=== PATIENT | male | born 1950 | race Caucasian/White ===

== ENCOUNTER 2017-03-10 20:47 | Emergency (ER) | payer MEDICARE, OTHER ==
[~2017-03-10] VITALS: Ht 190.5 cm; Wt 161.8 kg
[~2017-03-10 20:47] MED LIST: ASPI81TA2 PO; BENA40TA3 PO; CEPH500C2 PO; DILT240C95 PO; FLAX10006 PO; GARL400T13 PO; HYDR-2540 PO; LEVO137T2 PO; METO25TA6 PO; MULT1TAB69 PO; NITR0.4T SL; OMEG500C7 PEG; POTA-12 PO
--- OUTSIDE RECORDS SUMMARY | 2017-03-10 20:52 | XMS REPORT | Summary of Care ---
Author Author Paulie Barry M.D. Organization Unknown Address [address] [place] [address] [place] [address] Phone Unavailable Care Team Providers Care Human Performance Consultant Name Role Phone Paulie Barry M.D. Unavailable Unavailable [employer] Rosales II Unavailable Unavailable Unavailable Unavailable Functional Status Name Dates Details Functional status health issues are not documented Status: Name Dates Details Cognitive status health issues are not documented Status: Problems Name Dates Details Hypothyroid (244.9, E03.9) Status: Active Hyperlipidemia (272.4, E78.5) Status: Active Morbid obesity (278.01, E66.01) Status: Active Hypertension (401.9, I10) Status: Active OA (osteoarthritis) (715.90, M19.90) Status: Active Sleep apnea (780.57, G47.30) Status: Active Hyperglycemia (790.29, R73.9) Status: Active Raised prostate specific antigen (790.93, R97.20) Status: Active Prostate nodule (600.10, N40.2) Status: Active Prophylactic antibiotic (V58.62, Z79.2) Status: Active Medications Name Dates Details Allopurinol 300 MG Oral Tablet TAKE 1 TABLET DAILY. Quantity: 30 Cho M.D.Paulie * Start 13-Oct-2016 Active Aspir-81 81 MG Oral Tablet Delayed Release TAKE 1 TABLET DAILY DIRECTED. * Refills: 0 Cho M.D., Paulie * Start 13-Oct-2016 Active Benazepril HCl - 40 MG Oral Tablet TAKE 1 TABLET DAILY DIRECTED. * Refills: 0 Cho M.D., Paulie * Start 13-Oct-2016 Active DiltiaZEM CD 240 MG Oral Capsule Extended Release 24 Hour Take one capsule by mouth daily * Refills: 0 Cho M.D., Paulie * Start 13-Oct-2016 Active Fish Oil 500 MG Oral Capsule 1 daily * Refills: 0 Cho M.D., Paulie * Start 13-Oct-2016 Active Flaxseed Oil 1000 MG Oral Capsule TAKE DIRECTED. * Refills: 0 Cho M.D., Paulie * Start 13-Oct-2016 Active Garlic 400 MG Oral Tablet TAKE DIRECTED. * Refills: 0 Cho M.D., Paulie * Start 13-Oct-2016 Active HydroCHLOROthiazide 25 MG Oral Tablet TAKE 1 TABLET DAILY. * Quantity: 30 Refills: 2 Cho M.D., Paulie * Start 13-Oct-2016 Active Levothyroxine Sodium 100 MCG Oral Tablet Take one tablet by mouth daily * Quantity: 30 Refills: 0 Cho M.D., Paulie * Start 13-Oct-2016 Active Metoprolol Tartrate 25 MG Oral Tablet TAKE ONE TABLET BY MOUTH ONCE DAILY * Quantity: 90 Refills: 0 Cho M.D., Paulie * Start 13-Oct-2016 Active Multivitamin Men Oral Tablet TAKE 1 TABLET DAILY. * Refills: 0 Cho M.D., Paulie * Start 13-Oct-2016 Active Nitroglycerin 0.4 MG Sublingual Tablet Sublingual PLACE 1 TABLET UNDER THE TONGUE EVERY 5 MINUTES FOR UP TO 3 DOSES NEEDED FOR CHEST PAIN.CALL 911 IF PAIN PERSISTS. * Refills: 0 Cho M.D., Paulie * Start 13-Oct-2016 Active Potassium Gluconate 550 MG Oral Tablet TAKE 1 TABLET DAILY DIRECTED. * Refills: 0 Cho M.D., Paulie * Start 13-Oct-2016 Active Ciprofloxacin HCl - 500 MG Oral Tablet Take 1 tablet BID X 5 days. Start medication two days prior to procedure * Quantity: 10 Refills: 0 Cho M.D., Paulie * Start 16-Oct-2016 Active DiazePAM 10 MG Oral Tablet Take 1 tablet prior to procedure. Bring to appt with Dr. Barry * Quantity: 1 Refills: 0 Cho M.D., Paulie Sam Start 16-Oct-2016 Active Morphine Sulfate 10 MG/ML Injection Solution Inject 6mg IM X 1 dose. given in Right deltoid Lot: [id number] Exp:03/25/17 * Quantity: 1 Refills: 0 Cho M.D., Paulie * Start 23-Oct-2016 Admin Requested Allergies and Adverse Reactions Name Dates Details amoxicillin (Allergy) Status: Active Procedures Procedure Dates Details History of Colonoscopy History of Umbilical Hernia Repair Procedures not documented Immunization Name Dates Details Immunizations not documented Family History Name Dates Details Family history unknown (V49.89, Z78.9) Status: Active Name Dates Details Family history unknown (V49.89, Z78.9) Status: Active Social History Name Dates Details - Status: Name Dates Details Former smoker Vital Signs Date Test Result Details 23-Oct-2016 09:23 BP Systolic 163 mm[Hg] Status: Comments: Location: ; Position: BP Diastolic 91 mm[Hg] Status: Comments: Location: ; Position: Heart Rate 69 /min Status: Comments: Location: ; Weight 365 lb Status: Body Mass Index Calculated 45.62 kg/m2 Status: Body Surface Area Calculated 2.83 m2 Status: 16-Oct-2016 11:10 BP Systolic 164 mm[Hg] Status: Comments: Location: ; Position: BP Diastolic 96 mm[Hg] Status: Comments: Location: ; Position: Heart Rate 61 /min Status: Comments: Location: ; Height 75 in Status: Weight 365 lb Status: Body Mass Index Calculated 45.62 kg/m2 Status: Body Surface Area Calculated 2.83 m2 Status: Results Date Description Value Details Results not documented Plan of Care Name Dates Details Planned Observations Planned Goals not documented Planned Encounters Appointment; Provider: Paulie Barry M.D. On 30-Oct-2016 12:30 Instructions Name Dates Details Instructions not documented Encounters Appointment; Paulie Barry M.D. Encounter Diagnosis: Problem not documented On 16-Oct-2016 11:15
--- OUTSIDE RECORDS SUMMARY | 2017-03-10 20:52 | XMS REPORT | Summary of Care ---
Author Author [facility] Organization [facility] Address [address] [place] [address] Phone Care Team Providers Care Client Services Vice President Name Role Phone Paulie Barry M.D. Unavailable Unavailable [employer] Rosales II Unavailable Unavailable Unavailable Unavailable Functional Status Name Dates Details Functional status health issues are not documented Status: Name Dates Details Cognitive status health issues are not documented Status: Problems Name Dates Details Hypothyroid (244.9, E03.9) Status: Active Hyperlipidemia (272.4, E78.5) Status: Active Hypertension (401.9, I10) Status: Active OA (osteoarthritis) (715.90, M19.90) Status: Active Sleep apnea (780.57, G47.30) Status: Active Hyperglycemia (790.29, R73.9) Status: Active Raised prostate specific antigen (790.93, R97.20) Status: Active Prostate nodule (600.10, N40.2) Status: Active Prophylactic antibiotic (V58.62, Z79.2) Status: Active Morbid obesity (278.01, E66.01) Status: Active Prostate cancer (185, C61) Status: Active Medications Name Dates Details Allopurinol 300 MG Oral Tablet TAKE 1 TABLET DAILY. Quantity: 30 Cho M.D.Paulie Start 13-Oct-2016 Active Aspir-81 81 MG Oral Tablet Delayed Release TAKE 1 TABLET DAILY DIRECTED. * Refills: 0 Cho M.D., Paulie * Start 13-Oct-2016 Active Benazepril HCl - 40 MG Oral Tablet TAKE 1 TABLET DAILY DIRECTED. * Refills: 0 Cho M.D., Paulie Sam Start 13-Oct-2016 Active DiltiaZEM CD 240 MG Oral Capsule Extended Release 24 Hour Take one capsule by mouth daily * Refills: 0 Cho M.D., Paulie * Start 13-Oct-2016 Active Fish Oil 500 MG Oral Capsule 1 daily * Refills: 0 Cho M.D., Paulie Sam Start 13-Oct-2016 Active Flaxseed Oil 1000 MG [...] Cho M.D., Paulie * Start 13-Oct-2016 Active DiazePAM 10 MG Oral Tablet Take 1 tablet prior to procedure. Bring to appt with Dr. Barry * Quantity: 1 Refills: 0 Cho M.D., Paulie Sam Start 16-Oct-2016 Active Morphine Sulfate 10 MG/ML Injection Solution Inject 6mg IM X 1 dose. given in Right deltoid Lot: [id number] Exp:03/25/17 * Quantity: 1 Refills: 0 Cho M.D., Paulie * Start 23-Oct-2016 Admin Requested Potassium Gluconate 550 MG Oral Tablet TAKE 1 TABLET DAILY DIRECTED. * Refills: 0 Cho M.D., Paulie Sam Start 13-Oct-2016 Active Nitroglycerin 0.4 MG Sublingual Tablet Sublingual PLACE 1 TABLET UNDER THE TONGUE EVERY 5 MINUTES FOR UP TO 3 DOSES NEEDED FOR CHEST PAIN.CALL 911 IF PAIN PERSISTS. * Refills: 0 Cho M.D., Paulie Sam Start 13-Oct-2016 Active Multivitamin Men Oral Tablet TAKE 1 TABLET DAILY. * Refills: 0 Cho M.D., Paulie Sam Start 13-Oct-2016 Active Allergies and Adverse Reactions Name Dates Details [...] smoker Vital Signs Date Test Result Details 27-Nov-2016 12:28 BP Systolic 169 mm[Hg] Status: Comments: Location: ; Position: BP Diastolic 98 mm[Hg] Status: Comments: Location: ; Position: Heart Rate 56 /min Status: Comments: Location: ; Physical Findings 16 Status: Comments: Respiration Results Date Description Value Details Results not documented Plan of Care Name Dates Details Planned Observations Planned Goals not documented Instructions Name Dates Details Instructions not documented Encounters Appointment; Paulie Barry M.D. Encounter Diagnosis: Problem not documented On 09-Dec-2016 16:00 Appointment; Paulie Barry M.D. Encounter Diagnosis: Problem not documented On 27-Nov-2016 12:30 Appointment; Paulie Barry M.D. Encounter Diagnosis: Problem not documented On 30-Oct-2016 12:30 Appointment; Paulie Barry M.D. Encounter Diagnosis: Problem not documented On 23-Oct-2016 09:45 Appointment; Paulie Barry M.D. Encounter Diagnosis: Problem not documented On 16-Oct-2016 11:15
--- OUTSIDE RECORDS SUMMARY | 2017-03-10 20:53 | XMS REPORT | Summary of Care ---
Author Author [facility] Organization [facility] Address [address] [place] [address] Phone Care Team Providers Care Veneer Taping Machine Operator Name Role Phone Layo Florez, User Unavailable Unavailable Paulie Barry M.D. Unavailable Unavailable [employer] Rosales [...] TAKE 1 TABLET DAILY. Quantity: 30 Cho M.D., Paulie * Start 13-Oct-2016 Active Aspir-81 81 MG [...] Cho M.D., Paulie * Start 16-Oct-2016 Active Morphine Sulfate 10 MG/ML Injection Solution Inject 6mg IM X 1 dose. given in Right deltoid Lot: [id number] Exp:03/25/17 * Quantity: 1 Refills: 0 Cho [...]
--- OUTSIDE RECORDS SUMMARY | 2017-03-10 20:53 | XMS REPORT | Summary of Care ---
Author Author Paulie Barry M.D. Organization Unknown Address [address] [place] [address] [place] [address] Phone Unavailable Care Team Providers Care Supply Room Clerk Name Role Phone Paulie Barry M.D. Unavailable [...] Cho M.D., Paulie Sam Start 13-Oct-2016 Active HydroCHLOROthiazide 25 MG Oral Tablet TAKE 1 TABLET DAILY. * Quantity: 30 Refills: 2 Cho M.D., Paulie Sam Start 13-Oct-2016 Active Levothyroxine Sodium 100 MCG [...] 1 TABLET DAILY. * Refills: 0 Cho M.D.Paulie Start 13-Oct-2016 Active Nitroglycerin 0.4 MG Sublingual Tablet Sublingual PLACE 1 TABLET UNDER THE TONGUE EVERY 5 MINUTES FOR UP TO 3 DOSES NEEDED FOR CHEST PAIN.CALL 911 IF PAIN PERSISTS. * Refills: 0 Cho M.D., Paulie Sam Start 13-Oct-2016 Active Potassium Gluconate 550 MG Oral Tablet TAKE 1 TABLET DAILY DIRECTED. * Refills: 0 Cho M.D., Paulie Sam Start 13-Oct-2016 Active DiazePAM 10 MG Oral Tablet Take 1 tablet prior to procedure. Bring to appt with Dr. Barry * Quantity: 1 Refills: 0 Cho M.D.Paulie Start 16-Oct-2016 Active Morphine Sulfate 10 MG/ML Injection Solution Inject 6mg IM X 1 dose. given in Right deltoid Lot: [id number] Exp:03/25/17 * Quantity: 1 Refills: 0 Cho M.D.Paulie Start 23-Oct-2016 Admin Requested Allergies and Adverse [...] Encounters Appointment; Provider: Paulie Barry M.D. On 09-Dec-2016 16:00 Instructions Name Dates Details Instructions not documented Encounters Appointment; Paulie Barry M.D. Encounter Diagnosis: Problem not documented On 30-Oct-2016 12:30 Appointment; Paulie Barry M.D. Encounter Diagnosis: Problem not documented On 23-Oct-2016 09:45 Appointment; Paulie Barry M.D. Encounter Diagnosis: Problem not documented On 16-Oct-2016 11:15
--- OUTSIDE RECORDS SUMMARY | 2017-03-10 20:53 | XMS REPORT | Summary of Care ---
Author Author Paulie Barry M.D. Organization Unknown Address [address] [place] [address] [place] [address] Phone Unavailable Care Team Providers Care Panel Machine Setter Name Role Phone Paulie Barry M.D. Unavailable [...] Quantity: 1 Refills: 0 Cho M.D., Paulie Flaco Start 16-Oct-2016 Active Allergies and Adverse Reactions Name Dates [...]
--- OUTSIDE RECORDS SUMMARY | 2017-03-10 20:53 | XMS REPORT | Continuity of Care Document ---
Author Author [facility] Organization [facility] Address Unknown Phone Unavailable Allergies Medications Problems Date Dx Coded Attending Type Code Diagnosis Diagnosed By 03/30/2016 Dorothy Calvillo Reason I20.0 Unstable angina 03/30/2016 Dorothy Calvillo Final R79.89 Other specified abnormal findings of blood chemistry Procedures Results Encounters ACCT No. Visit Date/Time Discharge Status Pt. Type Provider Facility Loc./Unit Complaint [id number] 03/27/2016 08:07:00 2015 23:59:00 DIS Outpatient Dorothy Calvillo [facility] [place] [facility] Nuc Car I20.0 chest pain
--- OUTSIDE RECORDS SUMMARY | 2017-03-10 20:53 | XMS REPORT | Summary of Care ---
Author Author Paulie Barry M.D. Organization Unknown Address [address] [place] [address] [place] [address] Phone Unavailable Care Team Providers Care Stock Clipper Name Role Phone Paulie Barry M.D. Unavailable [...] 1 dose. given in Right deltoid Lot: [id number] Exp:03/25/17 * Quantity: 1 Refills: 0 Cho [...]
--- OUTSIDE RECORDS SUMMARY | 2017-03-10 20:53 | XMS REPORT | Summary of Care ---
Author Author Paulie Barry M.D. Organization Unknown Address [address] [place] [address] [place] [address] Phone Unavailable Care Team Providers Care Telephone Collector Name Role Phone Paulie Barry M.D. Unavailable [...]
--- OUTSIDE RECORDS SUMMARY | 2017-03-10 20:53 | XMS REPORT | Summary of Care ---
Author Author Paulie Barry M.D. Organization Unknown Address [address] [place] [address] [place] [address] Phone Unavailable Care Team Providers Care Director Media Name Role Phone Paulie Barry M.D. Unavailable Unavailable [employer] Ros[employer] II Unavailable Unavailable Unavailable Unavailable Functional Status [...] Status: Active Hyperglycemia (790.29, R73.9) Status: Active Prophylactic antibiotic (V58.62, Z79.2) Status: Active Raised prostate specific antigen (790.93, R97.20) Status: Active Prostate nodule (600.10, N40.2) Status: Active Medications Name Dates Details Allopurinol [...] smoker Vital Signs Date Test Result Details 16-Oct-2016 11:10 BP Systolic 164 mm[Hg] Status: [...] Encounters Appointment; Provider: Paulie Barry M.D. On 23-Oct-2016 09:45 Interventions Provided Medication Changes* Ciprofloxacin HCl - 500 MG Oral Tablet - Start * DiazePAM 10 MG Oral Tablet - Start Instructions Name Dates Details Instructions not documented Encounters Appointment; Paulie Barry M.D. Encounter Diagnosis: Problem not documented On 16-Oct-2016 11:15
--- OUTSIDE RECORDS SUMMARY | 2017-03-10 20:53 | XMS REPORT | Referral Summary ---
Author Author [facility] Organization [facility] Address Unknown Phone Unavailable Care Team Providers Care Clinical Education Consultant Name Role Phone Felicia Rosales II Primary Care Physician [phone] Encounter [facility] [id number] Date(s): 03/27/16 - 03/27/16 [facility] [address] [place] [address] Discharge Disposition: 01-Home or Self Care Attending Physician: Dorothy Calvillo MD Admitting Physician: Dorothy Calvillo MD Vital Signs No data available for this section Problem List No data available for this section Allergies, Adverse Reactions, Alerts No data available for this section Medications No data available for this section Results No data available for this section Immunizations No data available for this section Procedures No data available for this section Social History No data available for this section Assessment and Plan No data available for this section
--- OUTSIDE RECORDS SUMMARY | 2017-03-10 20:53 | XMS REPORT | Continuity of Care Document ---
Author Author [facility] Organization [facility] Address Unknown Phone Unavailable Support Name Relationship Address Phone ENRIQUETA FISHMAN MD Caregiver [address] [place] [address] Unavailable ENRIQUETA FISHMAN MD Caregiver [address] [place] [address] Unavailable ALTON SABILLON II, MD Caregiver [address] [place] [address] Unavailable CRISTINA MCINTOSH MD Caregiver [address] [place] [address] [place] [address] Unavailable JACE DAVIS Next Of Kin [address] [facility] [address] [place], [place] [id number] Insurance Providers Guarantor Flavio Davis Address [address] [facility] [address] [place] [address] Email DENIED/NO TO PORT Payer Other A Insurance Policy Number [id number] Subscriber's Name Flavio Davis Eliza Relationship 18 Self Group Number [id number] Advance Directives Directive Response Recorded Date/Time Advanced Directives Type None 03/22/16 9:18am Ordered Resuscitation Status Full Code 03/22/16 10:54am Resuscitation Documents on File No 03/22/16 12:02pm DPOA for Healthcare Only No 03/22/16 12:02pm Problems Active Problems Medical Problem Onset Date Status Chest pain Unknown Acute Paroxysmal supraventricular tachycardia Unknown Acute Medications Current Home Medications Medication Dose Units Route Directions Days Qty Instructions Start Date Aspirin 81 Mg Tab.chew 81 Mg Oral Daily 03/22/16 Benazepril Hcl 40 Mg Tablet 1 Tab Oral Daily 30 Days 30 Tablet Cephalexin 500 Mg Capsule 500 Mg Oral Q8h @ 0100/0900/1700 7 Days 21 Capsule 03/23/16 Diltiazem Hcl (Cardizem Cd) 240 Mg Cap.er.24h 240 Mg Oral Daily 30 Days 30 Capsule 03/23/16 Flaxseed (Flaxseed Oil) 1,000 Mg Capsule 1,000 Mg Oral Daily Garlic Unknown Strength Tablet Unknown Dose Oral Daily 03/22/16 Hydrochlorothiazide Unknown Strength Tablet Unknown Dose Oral Give With Breakfast 03/22/16 Levothyroxine Sodium Unknown Strength Tablet 100 Mcg Oral Before Breakfast BEST TAKEN BEFORE BREAKFAST 03/22/16 Metoprolol Tartrate 25 Mg Tablet 12.5 Mg Oral Twice Daily With Meals 30 Days 30 Tablet 03/23/16 Multivitamin (Multivitamins) 1 Each Tablet 1 Tab Oral Daily 03/22 Nitroglycerin (Nitrostat) 0.4 Mg Tablet 0.4 Mg Sublingual Every 5 Minutes X 3 as needed for Chest Pain 25 Tablet 03/23/16 [place]-3 Fatty Acids (Fish Oil) 500 Mg Capsule 1 Cap Peg Tube Daily 03/22/16 Potassium Chloride Unknown Strength Tab.er.prt Unknown Dose Oral Daily 03/22/16 Past Home Medications Medication Directions Ordered Status Amlodipine Besylate Unknown Strength Tablet, Unknown Dose Oral Daily Discontinued Social History Social History Problem Response Recorded Date/Time Onset Date Status Chewing Tobacco Status No 03/22/2016 9:18am Not Applicable Not Applicable Hx Substance Use Y HX OF MARIJUANA USE BACK IN THE 80'S 03/22/2016 9:18am Not Applicable Not Applicable Hx Alcohol Use Y OCCASIONAL 03/22/2016 9:18am Not Applicable Not Applicable Has the pt used tobacco in the last 12 months No 03/22/2016 12:05pm Not Applicable Not Applicable Query Response Start Date Stop Date Smoking Status Former smoker Hospital Discharge Instructions Instructions: Care Instructions: Reason for Hospitalization: Chest pain I was in the hospital because (patient own words): CHEST PAIN Discharge Diet: Cardiac Diet Discharge Activity: No exertion Follow Up Appointments: Expect a phone call tomorrow from my office to set up tests and f/u with me . call us in the am if needed. appt sera Sabillon.1-2 wks Pending Lab / Results: No Pending Lab Condition at time of discharge: Good Plan of Care Discharge Date 03/23/16 10:18pm Disposition 01 DISCHARGED HOME, SELF-CARE Instructions/Education Provided DI for Chest Pain Prescriptions See Medication Section Additional Instructions/Education off work this wk expect a phone call tomorrow from my office to set up tests and f/u with me . call us in the pm if needed. appt sera Sabillon.1-2 wks cardiac diet no exertion Care Plan and Goals See Discharge Instructions Section Functional Status Query Response Date Recorded Mobility Status Ambulatory March 22, 2016 12:12pm Assistive Devices None March 22, 2016 12:12pm Activity Limitations Weakness Shortness of breath Dizziness Syncope/fainting March 22, 2016 12:12pm Feeding Ability Independent March 22, 2016 12:12pm Toileting Ability Independent March 22, 2016 12:12pm Grooming Ability Independent March 22, 2016 12:12pm Dressing Ability Independent March 22, 2016 12:12pm Driving Ability Independent March 22, 2016 12:12pm Housework Ability Independent March 22, 2016 12:12pm Meal Preparation Ability Independent March 22, 2016 12:12pm Stair Climbing Ability Independent March 22, 2016 12:12pm Ability to complete ADL's impeded by No change March 22, 2016 12:12pm Cognitive/Perceptual Impairments Impaired vision March 22, 2016 12:12pm Visual Assistive Devices Glasses March 22, 2016 12:12pm Allergies, Adverse Reactions, Alerts Allergen Type Severity Reaction Status Last Updated Penicillin Allergy Unknown Active 03/22/16 Immunizations Query Response on File Recorded Date/Time Hx Influenza Vaccination No 03/22/16 12:05pm Hx Pneumococcal Vaccination Y spring 201403/22/16 12:05pm Hx Influenza Vaccination No 03/22/16 12:05pm Influenza Vaccine Hx NONE 03/22/16 9:18am Vital Signs Acute Vital Signs Vital Response Date/Time Temperature (Fahrenheit) 96.5 deg F (96.8 - 99.1) 03/23/2016 7:57pm Temperature (Calculated Celsius) 35.70238 degrees C (36.0 - 37.3) 03/23/2016 7:57pm Pulse Rate (adult) 54 bpm (60 - 100) 03/23/2016 7:57pm Respiratory Rate 20 breaths/min (10 - 20) 03/23/2016 7:57pm O2 Sat by Pulse Oximetry 99 % (90 - 100) 03/23/2016 7:57pm Oxygen Delivery Method Room Air 03/23/2016 7:57pm Blood Pressure 150/85 mm Hg 03/23/2016 7:57pm Blood Pressure Source Automatic Cuff 03/23/2016 7:57pm Height (Feet) 6 feet 03/23/2016 9:14pm Height (Inches) 3.00 inches 03/23/2016 9:14pm Weight (Kilograms) 165.600 kg 03/23/2016 7:36am Body Mass Index (BMI) 46.0 03/22/2016 12:01pm Results Laboratory Results Test Name Result Units Flags Reference Collection Date/Time Result Date/ Time Comments White Blood Count 6.9 T/MM3 4.5-11.0 03/23/2016 8:03/23/2016 8: 46am Red Blood Count 4.72 M/MM3 4.50-5.90 03/23/2016 8:03/23/2016 8: 46am Hemoglobin 15.1 GM/DL 13.5-17.5 03/23/2016 8:03/23/2016 8:46am Hematocrit 42.5 % 41-53 03/23/2016 8:03/23/2016 8:46am Mean Corpuscular Volume 90.0 UM3 80-100 03/23/2016 8:03/23/2016 8: 46am Mean Corpuscular Hemoglobin 32.0 UUG 26-34 03/23/2016 8:2015 8:46am Mean Corpuscular Hemoglobin Concent 35.5 GM/DL 31-37 03/23/2016 8:03/23/2016 8:46am RDW Standard Deviation 42.4 FL 36.9-50.2 03/23/2016 8:03/23/2016 8 :46am Platelet Count 190 T/MM3 130-400 03/23/2016 8:03/23/2016 8:46am Mean Platelet Volume 11.3 UM3 9.4-12.4 03/23/2016 8:03/23/2016 8: 46am Neutrophils (%) (Auto) 78.0 % H 33-66 03/23/2016 8:03/23/2016 8: 46am Lymphocytes (%) (Auto) 14.6 % L 23-45 03/23/2016 8:03/23/2016 8: 46am Monocytes (%) (Auto) 5.1 % 0-9.0 03/23/2016 8:03/23/2016 8:46am Eosinophils (%) (Auto) 1.7 % 0-4 03/23/2016 8:03/23/2016 8:46am Basophils (%) (Auto) 0.3 % 0-2 03/23/2016 8:03/23/2016 8:46am Immature Granulocyte % (Auto) 0.3 % 0.0-0.5 03/23/2016 8:2015 8:46am Absolute Neutrophils (auto) 5.4 T/MM3 1.8-7.7 03/23/2016 8:2015 8:46am Absolute Lymphocytes (auto) 1.0 T/MM3 1-4.8 03/23/2016 8:2015 8:46am Absolute Monocytes (auto) 0.4 T/MM3 0-0.8 03/23/2016 8:03/23/2016 8:46am Absolute Eosinophils (auto) 0.1 T/MM3 0-0.5 03/23/2016 8:2015 8:46am Absolute Basophils (auto) 0.0 T/MM3 0-0.2 03/23/2016 8:03/23/2016 8:46am Absolute Immature Granulocyte (auto 0.02 T/MM3 0.00-0.03 03/23/2016 8: 03/23/2016 8:46am Prothromb Time International Ratio 1.05 0.81-1.09 03/22/2016 9:03/22/2016 10:26am THERAPUTIC RANGE=2.00-3.00 FOR ANTI-THROMBOSIS THERAPUTIC RANGE=2.50-3.50 FOR IMPLANTED VALVE D-Dimer 268 NG/ML H 0-230 03/22/2016 9:03/22/2016 10:26am <230 NG/ ML D-DU=PRESUMPTIVE NEGATIVE FOR PE OR DVT >230 NG/ML D-DU=ADDITIONAL EVAL FOR PE OR DVT RECOMMENDED Icterus Index < 2 0-7 03/23/2016 8:03/23/2016 8:58am Chemistry Specimen Hemolysis < 15 0-25 03/23/2016 8:03/23/2016 9 :25am 0-25: Specimen Exhibited No Hemolysis. Turbidity < 20 0-20 03/23/2016 8:03/23/2016 8:58am Sodium Level 139 MEQ/L 134-144 03/23/2016 8:03/23/2016 8:58am Potassium Level 3.9 MEQ/L 3.6-5 03/23/2016 8:03/23/2016 8:58am Chloride Level 105 MEQ/L 98-107 03/23/2016 8:03/23/2016 8:58am Carbon Dioxide Level 28 MEQ/L 22-03/23/2016 8:03/23/2016 8: 58am Anion Gap 6 MEQ/L -03/23/2016 8:03/23/2016 8:58am Blood Urea Nitrogen 11.0 MG/DL 07-1403/23/2016 8:03/23/2016 8: 58am Creatinine 0.9 MG/DL 0.8-1.5 03/23/2016 8:03/23/2016 8:58am BUN/Creatinine Ratio 12 RATIO 04-1903/23/2016 8:03/23/2016 8:58am Glomerular Filtration Rate Calc 85 03/23/2016 8:03/23/2016 8: 58am Glucose Level 147 MG/DL H 75-110 03/23/2016 8:03/23/2016 8:58am Calculated Osmolality 270 MOSM/KG 261-280 03/23/2016 8:03/23/2016 8:58am Calcium Level 9.3 MG/DL 8.4-10.2 03/23/2016 8:03/23/2016 8:58am Total Bilirubin 1.00 MG/DL 0.20-1.30 03/23/2016 8:03/23/2016 8: 58am Alkaline Phosphatase 61 U/L D 38-126 03/23/2016 8:03/23/2016 9:05am Total Protein 6.5 G/DL 6.3-8.2 03/23/2016 8:03/23/2016 8:58am Albumin 3.8 G/DL 3.5-5.0 03/23/2016 8:03/23/2016 8:58am Globulin 2.7 G/DL 2.4-3.6 03/23/2016 8:03/23/2016 8:58am Albumin/Globulin Ratio 1.4 RATIO 1.1-2.2 03/23/2016 8:03/23/2016 8 :58am Aspartate Amino Transf (AST/SGOT) 29 U/L 17-59 03/23/2016 8:2015 8:58am Alanine Aminotransferase (ALT/SGPT) 31 U/L 21-72 03/23/2016 8: 8:58am Troponin I 0.587 ng/ml H 0-0.12 03/23/2016 8:03/23/2016 9:25am Troponin values greater than 0.120 ng/ml are considered a critical value. Troponin values with a difference of 55% increase from orginal troponin value represent a true biological DELTA value. (%increase Calc=Orginal Troponin value, divided by subsequent Troponin value, multiplied by 100) QB-Szk-Q-Type Natriuretic Peptide 80 PG/ML 0-175 03/22/2016 9:30am 10:41am Rule in cut points: <50 years old=450; 50-75 years old=900; >75 years old=1800; When utilizing ProBNP rule-in cut points, adjustment for impaired renal function is typically not required. Magnesium Level 2.0 MG/DL 1.6-2.3 03/22/2016 9:30am 03/22/2016 10:29am Thyroid Stimulating Hormone (TSH) 2.81 MIU/L 0.47-4.68 03/22/2016 9: 30am 03/22/2016 10:59am Hemoglobin A1c 5.7 % L 6.1-7.9 03/22/2016 9:43pm 03/22/2016 11:35pm < 6.0 NON-DIABETIC RANGE 6.1-7.9 [facility] TARGET RANGE >8.0 ACTION SUGGESTED Urine Collection Type CLEANCATCH-MIDSTREAM 03/22/2016 11:31am 03/22 11:56am Urine Color YELLOW YELLOW 03/22/2016 11:31am 03/22/2016 11:56am Urine Turbidity CLEAR CLEAR 03/22/2016 11:3103/22/2016 11:56am Urine Specific [place] 1.015 1.015-1.025 03/22/2016 11:31am 2015 11:56am Urine pH 8.0 5.0-8.0 03/22/2016 11:31am 03/22/2016 11:56am Urine Leukocyte Esterase NEGATIVE NEGATIVE 03/22/2016 11:31am 2015 11:56am Urine Nitrite NEGATIVE NEGATIVE 03/22/2016 11:31am 03/22/2016 11: 56am Urine Protein 1+ A NEGATIVE 03/22/2016 11:31am 03/22/2016 11:56am Urine Glucose (UA) NEGATIVE NEGATIVE 03/22/2016 11:31am 03/22/2016 11 :56am Urine Ketones NEGATIVE NEGATIVE 03/22/2016 11:31am 03/22/2016 11: 56am Urine Urobilinogen 0.2 EU/DL NORMAL 03/22/2016 11:31am 03/22/2016 11: 56am Urine Bilirubin NEGATIVE NEGATIVE 03/22/2016 11:31am 03/22/2016 11: 56am Urine Blood TRACE-LYSED A NEGATIVE 03/22/2016 11:31am 03/22/2016 11: 56am Urine WBC NONE SEEN /HPF 0-5 03/22/2016 11:31am 03/22/2016 12:05pm Urine RBC 0-1 /HPF 0-3 03/22/2016 11:31am 03/22/2016 12:05pm Urine Squamous Epithelial Cells 0-5 03/22/2016 11:31am 03/22/2016 12:05pm Urine Bacteria NONE SEEN NEGATIVE 03/22/2016 11:31am 03/22/2016 12: 05pm Urine Mucus PRESENT 03/22/2016 11:31am 03/22/2016 12:05pm Urine Culture Indicated CULT NOT INDICATED 03/22/2016 11:31am 03/22 12:05pm Glucometer 108 mg/dL 75-110 03/23/2016 9:12pm 03/23/2016 9:19pm Name: FLAVIO DAVIS Unit #: [id number] : 1950 Sex: M Admit Date: 03/22/16 Loc / Svc: MED Discharge Date: DIAGNOSTIC IMAGING REPORT Report #: [id number] [facility] LOLY [place] Indication: ITS.REASON: CHEST PAIN starting this morning, NEW ONSET SVT PROCEDURE: CHEST 1 VIEW: Encounter: Initial Comparison: November 11, 2011 Findings: The lungs are stable in appearance without new focal airspace consolidation. There is no pleural effusion or pneumothorax. The heart size, pulmonary vascularity and mediastinal contours are unchanged. Prominence of both central pulmonary arteries with a tortuous ectatic thoracic aorta. Prominent right paratracheal stripe. IMPRESSION: Stable appearance of the chest without acute cardiopulmonary disease. . Procedures No known history of procedures. Encounters Encounter Location Arrival/Admit Date Discharge/Depart Date Attending Provider Discharged Inpatient (obs) [facility] 03/22/16 10:49am 03/23/16 10:18pm ENRIQUETA FISHMAN MD
--- OUTSIDE RECORDS SUMMARY | 2017-03-10 20:53 | XMS REPORT | Summary of Care ---
Author Author Paulie Barry M.D. Organization Unknown Address [address] [place] [address] [place] [address] Phone Unavailable Care Team Providers Care Scientific Affairs Manager Name Role Phone Paulie Barry M.D. Unavailable Unavailable [employer] Unavailable Unavailable Unavailable Unavailable Functional Status [...] Active Prophylactic antibiotic (V58.62, Z79.2) Status: Active Prostate cancer (185, C61) Status: Active Morbid obesity (278.01, E66.01) Status: Active Medications Name Dates Details Allopurinol [...] Cho M.D., Paulie Sam Start 13-Oct-2016 Active Garlic 400 MG Oral [...] 1 dose. given in Right deltoid Lot: [id number] Exp:03/25/17 * Quantity: 1 Refills: 0 Cho [...] Encounters Appointment; Provider: Paulie Barry M.D. On 20-Nov-2016 14:30 Instructions Name Dates Details Instructions not documented Encounters Appointment; Paulie Barry M.D. Encounter Diagnosis: Problem not documented On 23-Oct-2016 09:45 Appointment; Paulie Barry M.D. Encounter Diagnosis: Problem not documented On 16-Oct-2016 11:15
[2017-03-10 21:13] VITALS: Ht 190.5 cm; Wt 161.8 kg
--- NOTE | 2017-03-10 21:46 | NUR ---
REGISTRATION STAFF DID REPORT THEY TOLD THE CHEST PAIN PATIENTS GO FIRST AND ARE THE PRIORITY
--- NOTE | 2017-03-10 21:46 | NUR ---
REGISTRATION REGISTRATION STAFF REPORTS PT WANTED TO KNOW WHY THE LAST PATIENT CAME BACK TO A ROOM WITHOUT HAVING TO WAIT. STATES SHE SEEMED ANGRY.
--- NOTE | 2017-03-10 22:00 | NUR ---
REGISTRATION REGISTRATION STAFF REPORTS THAT THE IS NOW SAYING PT IS HAVING CHEST PAIN. INFORMED WE WILL HAVE TO MOVE PT'S AROUND AND WE WILL GET HIM IN A ROOM
--- NOTE | 2017-03-10 22:09 | NUR ---
DAUGHTER DAUGHTER IS AT REGISTRATION YELLING AT THE STAFF ABOUT HER FATHER BEING IN THE LOBBY. THIS STAFF OUT TO TALK WITH HER. SHE IMMEDIATELY STARTED ASKING "WHY IS MY FATHER SITTING IN THE LOBBY FOR AN HOUR AND A-HALF". TRIED TO EXPLAIN THAT WE ARE CARING FOR PATIENTS FAST CAN, BUT THERE ARE ALOT OF PEOPLE HERE RIGHT NOW. STARTED YELLING THAT HER FATHER HAS BEEN SITTING OUT THERE ALL THIS TIME WITH CHEST PAIN AND THAT IS NOT ACCEPTABLE. TOLD THE DAUGHTER THAT PT HAS NOT C/O CHEST PAIN AND WE ARE CURRENTLY MOVING PATIENTS OUT OF ROOMS AND INTO HALLWAY TO GET A ROOM CLEANED FOR HIM TO COME BACK TO A ROOM. DAUGHTER'S VOICE GETTING LOUDER AND YELLING AT STAFF. SHE REPORTS THAT HE HAD CHEST PAIN IN TRIAGE AND THE NURSE DIDN'T CARE. SHE WAS INFORMED THAT THIS STAFF DID THE TRIAGE, CHEST PAIN WAS NEVER MENTIONED AND HE ACTUALLY DENIED ANY ACTUAL PAIN RIGHT THEN. SHE THEN YELLED "WELL HE HAD TIGHTNESS". SHE WAS TOLD THAT PT NEVER MENTIONED TIGHTNESS OR CHEST PAIN OF ANY KIND, AND ONLY HE AND HIS WERE IN TRIAGE WHEN IT WAS DONE. SHE WAS NOT ACTUALLY THERE WHEN I WAS TOALKING TO HER FATHER AND DID NOT HEAR WHAT HE REPORTED TO ME. DURING THIS TIME I ASKED HER TWICE TO LOWER HER VOICE. PT TOLD STAFF "I DON'T LIKE OUR DAMN ATTITUDE", "WE ARE GOING TO GO TO [facility] WHERE THEY ACTUALLY TAKE CARE OF THEIR PATIENTS". AGAIN TOLD PT A ROOM WAS BEING CLEANED FOR HIM RIGHT NOW AND WE WOULD GET HIM BACK JUST A COUPLE MORE MINUTES.
[2017-03-10 22:14] VITALS: BP 155/79; PULSE 93; RESP 20; TEMP 98.7; O2SAT 96
--- NOTE | 2017-03-10 22:14 | NUR ---
[facility] PT AND FAMILY WALKED OUT PER REGISTRATION STAFF
--- OUTSIDE RECORDS SUMMARY | 2017-03-10 22:38 | XMS REPORT | Continuity of Care Document ---
Author Author [facility] Organization [facility] Address Unknown Phone Unavailable Allergies Medications Problems Date Dx Coded Attending Type Code Diagnosis Diagnosed By 03/30/2016 Dorothy Calvillo Reason I20.0 Unstable angina 03/30/2016 Dorohty Calvillo Final R79.89 Other specified abnormal findings of blood chemistry Procedures Results Encounters ACCT No. Visit Date/Time Discharge Status Pt. Type Provider Facility Loc./Unit Complaint [id number] 03/27/2016 08:07:00 2015 23:59:00 DIS Outpatient Dorothy Calvillo [facility] [address] [facility] Nuc Car I20.0 chest pain
== END 2017-03-10 22:14 | disposition left against medical advice (07) ==
LOC: ED 20:47
DX: Z53.21 Procedure and treatment not carried out due to patient leaving prior to being seen by health care provider (principal)